=== PATIENT | male | born 1990 | race Caucasian/White ===

== ENCOUNTER 2020-07-31 12:19 | Outpatient (REF) | payer MEDICAID, SELFPAY | END 2020-07-31 12:20 | disposition home or self-care (01) | LOC: HO.LAB 12:19 | PROVIDERS: Visit Provider Internal Medicine | DX: Z20.828 Contact with and (suspected) exposure to other viral communicable diseases (principal) | CPT/HCPCS: C9803; U0003 ==

== ENCOUNTER 2021-09-15 08:53 | Outpatient (REF) | payer MEDICAID, SELFPAY ==
[2021-09-15 09:36] LABS: Binax Now Covid-19 Ag Positive (Negative)
[2021-09-15 09:37] LABS: Binax Internal Control QC Valid
== END 2021-09-15 08:54 | disposition home or self-care (01) ==
LOC: HO.LAB 08:53
PROVIDERS: Visit Provider Internal Medicine
DX: Z20.822 Contact with and (suspected) exposure to COVID-19 (principal)
CPT/HCPCS: C9803